=== PATIENT | male | born 1965 | race Caucasian/White ===

== ENCOUNTER 2017-03-10 16:44 | Inpatient (IN) | payer OTHER, MEDICAID ==
[~2017-03-10] VITALS: Ht 170.2 cm; Wt 113.4 kg
[~2017-03-10 16:44] MED LIST: *NON-FORMULARY MED [ENTER DRUG, DOSE, FREQ IN COMMENTS] CLINICAL ONE
[2017-03-10 17:13] LABS: GLUCOSE,POINT OF CARE 202 MG/DL (70-110)
[2017-03-10] MEDS ORDERED: FLUO-191 PO (17:17)
[2017-03-10] MEDS ORDERED: TORS20 PO (17:18)
[2017-03-10] MEDS ORDERED: CARV25 PO (17:18)
[2017-03-10] MEDS ORDERED: MECL-111 PO (17:18)
[2017-03-10] MEDS ORDERED: SPIR25 PO (17:19)
[2017-03-10] MEDS ORDERED: TAMS0.4C32 PO (17:19)
[2017-03-10] MEDS ORDERED: IVAB7.5T PO (17:20)
[2017-03-10 17:36] LABS: BASOPHILS % (AUTO) 0.4 % (0.0-2.0); EOSINOPHILS % (AUTO) 5.5 % (1.0-6.0); HEMATOCRIT 42.3 % (41-53); HEMOGLOBIN 14.3 g/dL (13.5-17.5); LYMPHOCYTES # (AUTO) 2.4 K/uL (1.0-4.8); LYMPHOCYTES % (AUTO) 19.9 % (22.0-44.0); MEAN CORPUSCULAR HGB CONC 33.8 G/dL (31.0-37.0); MEAN CORPUSCULAR VOLUME 86 fL (80-100); MONOCYTES # (AUTO) 0.7 K/uL (0.1-1.0); MONOCYTES % (AUTO) 5.7 % (2.0-9.0); NEUTROPHILS # (AUTO) 8.1 K/uL (1.8-7.7); NEUTROPHILS % (AUTO) 68.5 % (40.0-70.0); PLATELET COUNT (AUTO) 274 K/uL (150-450); RED BLOOD CELL COUNT(AUTO) 4.91 MIL/uL (4.50-5.90); RED CELL DISTRIBUTION WIDTH 14.7 % (11.5-14.5); WHITE BLOOD COUNT (AUTO) 11.8 K/uL (4.5-11.0)
[2017-03-10 17:39] LABS: ANION GAP 11 mmol/L (8-16); CALCIUM, TOTAL 9.6 mg/dL (8.8-10.5); CARBON DIOXIDE 27 mmol/L (22-29); CHLORIDE 97 mmol/L (98-107); CREATININE 1.62 mg/dL (0.60-1.30); GLOMERULAR FILTR. RATE CALC 45 mL/min (>60); POTASSIUM 3.8 mmol/L (3.5-5.1); SODIUM SERUM 135 mmol/L (136-145); UREA NITROGEN, BLOOD 27 mg/dL (7-18)
[2017-03-10 17:45] LABS: ALANINE AMINOTRANSFERASE 31 U/L (12-78); ALBUMIN 4.3 g/dL (3.4-5.0); ASPARTATE AMINOTRANSFERASE 15 U/L (15-37); BILIRUBIN,TOTAL 0.3 mg/dL (0.1-1.0); TOTAL PROTEIN, SERUM 8.3 g/dL (6.4-8.2)
[2017-03-10] MEDS ORDERED: LORazepam 2 MG TABLET PO PRN (18:30)
[2017-03-10] MEDS ORDERED: ZOLPIDEM TARTRATE 10 MG TABLET PO PRN (18:30)
[2017-03-10] MEDS ORDERED: HALOPERIDOL 5 MG TABLET PO PRN (18:30)
[2017-03-10] MEDS ORDERED: HALOPERIDOL LACTATE 5 MG/ML VIAL IM ONE (18:45)
[2017-03-10] MEDS ORDERED: LORazepam 2 MG/ML VIAL IM ONE (18:45)
[2017-03-10 20:26] VITALS: BP 121/52
[2017-03-10] MEDS ORDERED: MECLIZINE HCL 25 MG TABLET PO PRN (22:00)
[2017-03-10] MEDS: TAMSULOSIN HCL 0.4 MG CAPSULE PO SCH (22:18)
[2017-03-11 06:55] LABS: CHOL/HDL RATIO 4.9 (4.2-7.3)
[2017-03-11] MEDS: TORSEMIDE 20 MG TABLET PO SCH (08:16)
[2017-03-11] MEDS: NICOTINE 21 MG/24 HOUR PATCH TD SCH (08:16)
[2017-03-11] MEDS: SPIRONOLACTONE 25 MG TABLET PO SCH (08:16)
[2017-03-11] MEDS: CARVEDILOL 25 MG TABLET PO SCH (08:17)
[2017-03-11] MEDS: IVABRADINE 7.5 MG PO SCH ×2 (08:17→17:17)
[2017-03-11] MEDS: FLUoxetine HCL 20 MG CAPSULE PO SCH (08:18)
[2017-03-11 10:25] VITALS: BP 100/61
[2017-03-11] MEDS ORDERED: ACETAMINOPHEN 325 MG TABLET PO PRN (14:45)
[2017-03-11 17:18] VITALS: BP 119/68
[2017-03-11] MEDS: TAMSULOSIN HCL 0.4 MG CAPSULE PO SCH (20:23)
[2017-03-12 08:00] VITALS: BP 119/48
[2017-03-12] MEDS: FLUoxetine HCL 20 MG CAPSULE PO SCH (08:43)
[2017-03-12] MEDS: CARVEDILOL 25 MG TABLET PO SCH (08:43)
[2017-03-12] MEDS: SPIRONOLACTONE 25 MG TABLET PO SCH (08:43)
[2017-03-12] MEDS: IVABRADINE 7.5 MG PO SCH ×2 (08:43→17:44)
[2017-03-12] MEDS: TORSEMIDE 20 MG TABLET PO SCH (08:43)
[2017-03-12] MEDS: NICOTINE 21 MG/24 HOUR PATCH TD SCH (08:47)
[2017-03-12] MEDS: HYDROCODONE/ACETAMINOPHEN 5-325 MG TABLET PO PRN (14:54)
[2017-03-12] MEDS: TAMSULOSIN HCL 0.4 MG CAPSULE PO SCH (20:51)
[2017-03-13] VITALS: BP 143/74
[2017-03-13] MEDS: HYDROCODONE/ACETAMINOPHEN 5-325 MG TABLET PO PRN ×2 (00:06→07:15)
[2017-03-13 08:15] VITALS: BP 118/84
[2017-03-13] MEDS: TORSEMIDE 20 MG TABLET PO SCH (08:54)
[2017-03-13] MEDS: SPIRONOLACTONE 25 MG TABLET PO SCH (08:54)
[2017-03-13] MEDS: CARVEDILOL 25 MG TABLET PO SCH (08:54)
[2017-03-13] MEDS: IVABRADINE 7.5 MG PO SCH (08:54)
[2017-03-13] MEDS: FLUoxetine HCL 20 MG CAPSULE PO SCH (08:55)
[2017-03-13] MEDS: NICOTINE 21 MG/24 HOUR PATCH TD SCH (08:55)
== END 2017-03-13 10:00 | disposition home or self-care (01) | DRG 885 ==
LOC: EMS 16:46 → 3EX 19:30
DX: F33.2 Major depressive disorder, recurrent severe without psychotic features (principal); N17.9 Acute kidney failure, unspecified; E11.22 Type 2 diabetes mellitus with diabetic chronic kidney disease; I13.0 Hypertensive heart and chronic kidney disease with heart failure and stage 1 through stage 4 chronic kidney disease, or unspecified chronic kidney disease; I50.9 Heart failure, unspecified; R45.851 Suicidal ideations; E03.9 Hypothyroidism, unspecified; E78.00 Pure hypercholesterolemia, unspecified; F17.210 Nicotine dependence, cigarettes, uncomplicated; M54.30 Sciatica, unspecified side; N18.9 Chronic kidney disease, unspecified; N40.0 Benign prostatic hyperplasia without lower urinary tract symptoms; M79.7 Fibromyalgia; G89.29 Other chronic pain; M54.9 Dorsalgia, unspecified; Z79.899 Other long term (current) drug therapy; Z95.810 Presence of automatic (implantable) cardiac defibrillator
CPT/HCPCS: 82962; 96372; 99285; G0480; J1630; J2060